=== PATIENT | female | born 1960 | race Caucasian/White ===

== ENCOUNTER → 2018-06-04 | Outpatient (CLI) | payer OTHER | LOC: FIMAGING 08:30 | PROVIDERS: ATTEND Orthopaedic Surgery | DX: M17.12 Unilateral primary osteoarthritis, left knee (principal); S82.202A Unspecified fracture of shaft of left tibia, initial encounter for closed fracture; M71.22 Synovial cyst of popliteal space [Baker], left knee ==

== ENCOUNTER 2018-06-27 | Observation (INO) | payer OTHER | END 2018-06-28 11:05 | disposition home or self-care (01) | PROVIDERS: ADMIT Orthopaedic Surgery | PROC: 8E0Y0CZ Robotic Assisted Procedure of Lower Extremity, Open Approach (ICD-10-PCS; principal; 2018-06-27) | PROC: 0SRD0J9 Replacement of Left Knee Joint with Synthetic Substitute, Cemented, Open Approach (ICD-10-PCS; principal; 2018-06-27) | DX: M17.12 Unilateral primary osteoarthritis, left knee (principal); I10 Essential (primary) hypertension | CPT/HCPCS: 27447; 73560; 97116; 97161; G0378 ==